=== PATIENT | female | born 1985 | race Caucasian/White ===

== ENCOUNTER 2016-08-05 15:38 | Emergency (ER) | payer MEDICAID ==
[2016-08-05 15:40] VITALS: BMI 28.8
[2016-08-05 15:45] VITALS: PULSE 77
[2016-08-05 16:07] LABS: LEUKOCYTES/URINE NEG (NEGATIVE); NITRITE/URINE NEG (NEGATIVE); RBC/URINE 0-2 (0-5); URINE OCCULT BLOOD 1+ (NEG/TRACE)
--- NOTE | 2016-08-05 16:48 | EDPRACDOC ---
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 Description: Reports: Spontaneous Location: Reports: Internal Vagina Relevant History: Reports: None Control Method: Reports: None Pain Severity: None Vaginal Bleeding Description: Reports: Bright Red Associated Signs & Symptoms: Denies: Fever, Dysuria, Frequency, Abdominal Pain, Nausea, Vomiting, Vaginal Pain ED Past Medical History - Patient Medical History Psychological History: Reports: Depression, Anxiety Systemic History: Denies: Cancer Surgical History: Reports: Other (). Denies: Hysterectomy - Family Medical History Reports: Hypertension (DAD, PGM, PGF), Cancer (PGF). Denies: Diabetes, Stroke, Cardiac Disorders - Social Medical History Smoking Status: Heavy tobacco smoker (5 or more cigarettes/day or daily pipe/ cigar) EDM Review of Systems - Review of Systems Constitutional: negative: Chills, Fever Gastrointestinal: negative: Diarrhea, Nausea, Pain, Vomiting Genitourinary: Vaginal Bleeding. negative: Dysuria, Frequency - Physical Exam Constitutional: Alert (Awake), No apparent distress Oriented to: Time, Person, Place Last recorded Vital Signs: Last Vital Signs Temp 98.7 F 08/05/16 15:42 Pulse 77 08/05/16 15:42 Resp 20 08/05/16 15:42 BP 141/71 08/05/16 15:42 Pulse Ox 98 08/05/16 15:42 Oxygen Pulse Oxygen Saturation 98 O2 Device Room Air Oxygen Flow Rate Fraction of Inspired Oxygen ( FIO2) - HEENT Head: Normal ( normocephalic) - Respiratory/Cardiovascular Respiratory: Normal - CTA (BBS clear to auscultation without adventitious sounds ) Cardiovascular: Normal (RRR without murmur, gallop or rub) - Bladder: Normal External: Normal Vagina: Blood. negative: Discharge, Lesions, Tissue Cervix: Blood. negative: Discharge, Tissue, Tenderness, Open Uterus: Normal size Adnexa: Bilateral: Normal - Differential Diagnosis Dysmenorrhea, Inevitable , Incomplete , Threatened , UTI - Results Urine Color Yellow 08/05/16 15:48 Urine Clarity Cldy 08/05/16 15:48 Urine pH 6.0 (5.0-8.0) 08/05/16 15:48 Ur Specific [place] 1.030 (1.003-1.035) 08/05/16 15:48 Urine Protein 1+ (NEG/TRACE) H 08/05/16 15:48 Urine Glucose (UA) Neg (NEGATIVE) 08/05/16 15:48 Urine Ketones Neg (NEGATIVE) 08/05/16 15:48 Urine Occult Blood 1+ (NEG/TRACE) H 08/05/16 15:48 Urine Nitrite Neg (NEGATIVE) 08/05/16 15:48 Urine Bilirubin Neg (NEGATIVE) 08/05/16 15:48 Urine Urobilinogen <2.0 MG/DL (0-1) 08/05/16 15:48 Ur Leukocyte Esterase Neg (NEGATIVE) 08/05/16 15:48 Urine RBC 0-2 (0-5) 08/05/16 15:48 Urine WBC 5-10 (0-5) H 08/05/16 15:48 Ur Epithelial Cells 4+ 08/05/16 15:48 Urine Mucus Large (NEG/OCC) 08/05/16 15:48 Urine Test Neg (NEGATIVE) 08/05/16 15:48 Lab Results 08/05/16 08/05/16 15:48 15:48 Urine Color Yellow Urine Clarity Cldy Urine pH 6.0 Ur Specific [place] 1.030 Urine Protein 1+ H Urine Glucose (UA) Neg Urine Ketones Neg Urine Occult Blood 1+ H Urine Nitrite Neg Urine Bilirubin Neg Urine Urobilinogen <2.0 Ur Leukocyte Esterase Neg Urine RBC 0-2 Urine WBC 5-10 H Ur Epithelial Cells 4+ Urine Mucus Large Urine Test Neg Decision Time to Discharge: 17:34 - Departure Disposition: Home Condition: Stable Final Diagnosis: Dysfunctional uterine bleeding Instructions: Dysfunctional Uterine Bleeding (ED) Education/Counseling Given To: Patient Education/Counseling Given Regarding: Diagnosis, Treatment, Prognosis, Follow Up Referrals: Grecia Peck DO [Staff Physician] - One Week Prescriptions: No Action No Home Medications 0 NA DIR #0 info Additional Instructions: REST, DRINK PLENTY OF FLUIDS, RETURN TO THE ED FOR ANY WORSENING SYMPTOMS OR CONCERNS.
[2016-08-05 17:26] VITALS: BP 109/60; TEMP 98.2
[2016-08-06 21:36] LABS: CHLAMY BY NUCLEIC ACID AMP Negative (Negative)
[2016-08-07 07:42] LABS: GC BY NUCLEIC ACID AMP Negative (Negative)
== END 2016-08-05 18:01 | disposition home or self-care (01) ==
LOC: ED 15:38
DX: N93.8 Other specified abnormal uterine and vaginal bleeding (principal)
CPT/HCPCS: 81001; 81025; 87210; 87220; 87491; 87591; 99283